=== PATIENT | male | born 1990 | race Caucasian/White ===

== ENCOUNTER 2016-08-13 13:25 | Emergency (ER) | payer OTHER ==
[~2016-08-13] VITALS: Ht 162.6 cm; Wt 86.2 kg
[2016-08-13] MEDS ORDERED: ONDANSETRON 4MG/2ML VIAL (J2405) IV ONE (14:00)
[2016-08-13] MEDS ORDERED: NS 1,000 ML IV ONE (14:00)
[2016-08-13] MEDS ORDERED: FAMOTIDINE IV BAG 20 MG in APPROPRIATE DILUENT 1 EA IV ONE (14:00)
[2016-08-13 14:26] LABS: BASO % 0.3 % (0.0-1.0); EOS # 0.2 K/mm3 (0.0-0.50); EOS % 1.8 % (0.0-3.0); LARGE UNSTAINED CELL # 0.1 K/mm3 (0.0-0.4); LARGE UNSTAINED CELL % 1.2 % (0.0-4.0); LYMPH # 1.8 K/mm3 (1.5-6.5); LYMPH % 18.4 % (24.0-44.0); MEAN CORPUSCULAR HEMOGLOBIN 31.3 pg (27.0-33.0); MEAN CORPUSCULAR HGB CONC 34.4 g/dl (32.0-36.5); MEAN CORPUSCULAR VOLUME 90.8 fl (80.0-96.0); MONO # 0.7 K/mm3 (0.0-0.8); MONO % 7.1 % (0.0-5.0); NEUTROPHILS # 6.6 K/mm3 (1.8-7.7); NEUTROPHILS % 71.1 % (36.0-66.0); PLATELET COUNT, AUTOMATED 255 k/mm3 (150-450); RED CELL DISTRIBUTION WIDTH 12.1 % (11.5-14.5); WHITE BLOOD COUNT 9.2 K/mm3 (4.0-10.0)
[2016-08-13 14:41] LABS: ALBUMIN 4.1 GM/DL (3.2-5.2); ALBUMIN/GLOBULIN RATIO 1.14 (1.00-1.93); ALKALINE PHOSPHATASE 155 U/L (45-117); ALT/SGPT 51 U/L (12-78); ANION GAP 6 MEQ/L (8-16); AST/SGOT 17 U/L (15-37); BILIRUBIN,DIRECT 0.1 MG/DL (0.0-0.2); BILIRUBIN,TOTAL 0.6 MG/DL (0.2-1.0); BLOOD UREA NITROGEN 13 MG/DL (7-18); CALCIUM LEVEL 9.1 MG/DL (8.5-10.1); CARBON DIOXIDE LEVEL 31 MEQ/L (21-32); CHLORIDE LEVEL 104 MEQ/L (98-107); CREATININE FOR GFR 0.94 MG/DL (0.70-1.30); GLOMERULAR FILTRATION RATE > 60.0 (>60); GLUCOSE, FASTING 94 MG/DL (70-105); POTASSIUM SERUM 3.2 MEQ/L (3.5-5.1); SODIUM LEVEL 141 MEQ/L (136-145); TOTAL PROTEIN 7.7 GM/DL (6.4-8.2)
--- NOTE | 2016-08-13 14:47 | REP ---
Clinical: Epigastric and abdominal pain. Technique: Upright view of the chest with supine and upright views of the abdomen and pelvis. Findings: Frontal upright view of the chest demonstrates no acute cardiopulmonary process or free air below the diaphragm to suspect pneumoperitoneum. Supine and upright views of the abdomen and pelvis demonstrate nonspecific bowel gas pattern without obstruction or perforation. No organomegaly. No abnormal calcifications. Skeletal structures normal for age. Impression: Nonspecific bowel gas pattern. Signed by Zhen Fitch MD 08/13/2016 02:39 P
[2016-08-13] MEDS ORDERED: HYDR-3713 PO (15:08)
[2016-08-13] MEDS ORDERED: ZOFR4TAB3 PO (15:08)
[2016-08-13 15:33] VITALS: BP 138/74
== END 2016-08-13 15:39 | disposition home or self-care (01) ==
LOC: M ED 14:40
DX: K85.90 Acute pancreatitis without necrosis or infection, unspecified (principal); F17.210 Nicotine dependence, cigarettes, uncomplicated

== ENCOUNTER 2017-06-19 00:19 | Emergency (ER) | payer OTHER ==
[2017-06-19] MEDS: LIDOCAINE 2% MDV 20 ML VIAL SC (01:31)
[2017-06-19] MEDS: ceFAZolin 1GM INJ (J0690 PER 500MG) IM (02:41)
== END 2017-06-19 02:46 | disposition home or self-care (01) ==
LOC: M ED 00:19
DX: S61.411A Laceration without foreign body of right hand, initial encounter (principal); W22.09XA Striking against other stationary object, initial encounter; Y92.009 Unspecified place in unspecified non-institutional (private) residence as the place of occurrence of the external cause; F17.200 Nicotine dependence, unspecified, uncomplicated
CPT/HCPCS: J0690

== ENCOUNTER → 2021-02-13 | Outpatient (REF) | payer OTHER ==
[~2021-02-13] MED LIST: HYDR-3713 PO; HYDR-3715 PO; KEFL500C17 PO; ZOFR4TAB14 PO
== END ==
LOC: M LAB REF 19:27
PROVIDERS: ATTEND Physician Assistant
DX: J20.9 Acute bronchitis, unspecified (principal)

== ENCOUNTER 2021-02-15 12:26 | Emergency (ER) | payer OTHER ==
[~2021-02-15] VITALS: Ht 162.6 cm; Wt 105.6 kg
[2021-02-15 12:27] VITALS: BP 162/83
--- OUTSIDE RECORDS SUMMARY | 2021-02-15 12:32 | CCD | Continuity of Care Document ---
Author Darrick Pagan Organization Unknown Address [address] [place] [address] [place] [address] Phone [phone] Care Team Providers Care Windows Software Engineer Name Role Phone [facility] AUTM [phone] Problems Description No Information Available Social History Type Date Description Comments Sex Unknown ETOH Use Drinks Alcoholic Beverages Rarel y Tobacco Use Start: Unknown Patient is a current smoker, smo kes every day 1 pack q two weeks Tobacco Use Start: Unknown The Patient Has Never Vaped Allergies and adverse reactions Description No Known Drug Allergies Medications Active Medications SIG Qnty Indications Ordering Provide r Date Proair HFA 108(90Base) mcg/Act Aer osol 2 puffs by mouth inhaled every 4-6 hours as needed 8.500gm J20.9 Brad Esparza JR., M.D. 02/13/2021 Prednisone 10mg Tablets 1 tab PO tid for 4 days 12tabs J20.9 Brad Esparza JR., M.D. Multivitamin Unknown Immunizations Description No Information Available Vital Signs Date Vital Result Comment 02/13/2021 3:40pm BP Systolic 145 mmHg BP Diastolic 81 mmHg Heart Rate 86 /min Respiratory Rate 16 /min O2 % BldC Oximetry 99 % Body Temperature 98.3 F Weight 190.00 lb Height 64 inches 5'4" BMI (Body Mass Index) 32.6 kg/m2 Pain Level 7 Results Description No Information Available Procedures Date Code Description Status 02/13/2021 62208 Office/Outpatient New Low [facility] 30 -44 Minutes Completed Medical Devices Description No Information Available Encounters Type Date Location Provider Dx Diagnosis Office Visit 02/13/2021 1:00p Main Office ERNESTINE Corado J20.9 Acute bronchitis, unspecified Z20.828 Contact w and exposure to ot h viral communicable diseases Assessments Date Code Description Provider 02/13/2021 J20.9 Acute bronchitis, unspecified Re ERNESTINE Harmon 02/13/2021 Z20.828 Contact with and (garcia spected) exposure to other viral communicable diseases ERNESTINE Corado Plan of Treatment No Information Available Functional Status Description No Information Available Mental Status Description No Information Available Referrals Description No Information Available
--- OUTSIDE RECORDS SUMMARY | 2021-02-15 12:32 | CCD ---
Author Author [facility] Address Unknown Phone Unavailable Care Team Providers Care Bullet Maker Name Role Phone RING, K ESME PA Unavailable Unavailable RING, K ESME PA Unavailable Unavailable RING, K ESME PA Unavailable Unavailable RING, K ESME PA Unavailable Unavailable RING, K ESME PA Unavailable Unavailable RING, K ESME PA Unavailable Unavailable RING, K ESME PA Unavailable Unavailable RING, K ESME PA Unavailable Unavailable RING, K ESME PA Unavailable Unavailable RING, K ESME PA Unavailable Unavailable RING, K ESME PA Unavailable Unavailable RING, K ESME PA Unavailable Unavailable RING, K ESME PA Unavailable Unavailable RING, K ESME PA Unavailable Unavailable RING, K ESME PA Unavailable Unavailable RING, K ESME PA Unavailable Unavailable RING, K ESME PA Unavailable Unavailable RING, K ESME PA Unavailable Unavailable RING, K ESME PA Unavailable Unavailable RING, K ESME PA Unavailable Unavailable RING, K ESME PA Unavailable Unavailable RING, K ESME PA Unavailable Unavailable Kendall, Theresa Unavailable Kendall, Theresa Unavailable BUMBANAC, A STAR AN/SQQ 89(V)15 SONAR SYSTEM JOURNEYMAN Unavailable Unavailable BUMBANAC, A STAR AN/SQQ 89(V)15 SONAR SYSTEM JOURNEYMAN Unavailable Unavailable BUMBANAC, A STAR AN/SQQ 89(V)15 SONAR SYSTEM JOURNEYMAN Unavailable Unavailable BUMBANAC, A STAR AN/SQQ 89(V)15 SONAR SYSTEM JOURNEYMAN Unavailable Unavailable BUMBANAC, A STAR AN/SQQ 89(V)15 SONAR SYSTEM JOURNEYMAN Unavailable Unavailable BUMBANAC, A STAR AN/SQQ 89(V)15 SONAR SYSTEM JOURNEYMAN Unavailable Unavailable BUMBANAC, A STAR AN/SQQ 89(V)15 SONAR SYSTEM JOURNEYMAN Unavailable Unavailable BUMBANAC, A STAR AN/SQQ 89(V)15 SONAR SYSTEM JOURNEYMAN Unavailable Unavailable BUMBANAC, A STAR AN/SQQ 89(V)15 SONAR SYSTEM JOURNEYMAN Unavailable Unavailable BUMBANAC, A STAR AN/SQQ 89(V)15 SONAR SYSTEM JOURNEYMAN Unavailable Unavailable BUMBANAC, A STAR AN/SQQ 89(V)15 SONAR SYSTEM JOURNEYMAN Unavailable Unavailable BUMBANAC, A STAR AN/SQQ 89(V)15 SONAR SYSTEM JOURNEYMAN Unavailable Unavailable BUMBANAC, A STAR AN/SQQ 89(V)15 SONAR SYSTEM JOURNEYMAN Unavailable Unavailable BUMBANAC, A STAR AN/SQQ 89(V)15 SONAR SYSTEM JOURNEYMAN Unavailable Unavailable BUMBANAC, A STAR AN/SQQ 89(V)15 SONAR SYSTEM JOURNEYMAN Unavailable Unavailable BUMBANAC, A STAR AN/SQQ 89(V)15 SONAR SYSTEM JOURNEYMAN Unavailable Unavailable BUMBANAC, A STAR AN/SQQ 89(V)15 SONAR SYSTEM JOURNEYMAN Unavailable Unavailable BUMBANAC, A STAR AN/SQQ 89(V)15 SONAR SYSTEM JOURNEYMAN Unavailable Unavailable BUMBANAC, A STAR AN/SQQ 89(V)15 SONAR SYSTEM JOURNEYMAN Unavailable Unavailable BUMBANAC, A STAR AN/SQQ 89(V)15 SONAR SYSTEM JOURNEYMAN Unavailable Unavailable BUMBANAC, A STAR AN/SQQ 89(V)15 SONAR SYSTEM JOURNEYMAN Unavailable Unavailable BUMBANAC, A STAR AN/SQQ 89(V)15 SONAR SYSTEM JOURNEYMAN Unavailable Unavailable BUMBANAC, A STAR AN/SQQ 89(V)15 SONAR SYSTEM JOURNEYMAN Unavailable Unavailable BUMBANAC, A STAR AN/SQQ 89(V)15 SONAR SYSTEM JOURNEYMAN Unavailable Unavailable BUMBANAC, A STAR AN/SQQ 89(V)15 SONAR SYSTEM JOURNEYMAN Unavailable Unavailable BUMBANAC, A STAR AN/SQQ 89(V)15 SONAR SYSTEM JOURNEYMAN Unavailable Unavailable BUMBANAC, A STAR AN/SQQ 89(V)15 SONAR SYSTEM JOURNEYMAN Unavailable Unavailable BUMBANAC, A STAR AN/SQQ 89(V)15 SONAR SYSTEM JOURNEYMAN Unavailable Unavailable BUMBANAC, A STAR AN/SQQ 89(V)15 SONAR SYSTEM JOURNEYMAN Unavailable Unavailable BUMBANAC, A STAR AN/SQQ 89(V)15 SONAR SYSTEM JOURNEYMAN Unavailable Unavailable BUMBANAC, A STAR AN/SQQ 89(V)15 SONAR SYSTEM JOURNEYMAN Unavailable Unavailable NOT, SPECIFIED Unavailable Unavailable Re-disclosure Warning The records that you are about to access may contain information from federally-assisted alcohol or drug abuse programs. If such information is present, then the following federally mandated warning applies: This information has been disclosed to you from records protected by federal confidentiality rules (42 CFR part 2). The federal rules prohibit you from making any further disclosure of this information unless further disclosure is expressly permitted by the written consent of the person to whom it pertains or as otherwise permitted by 42 CFR part 2. A general authorization for the release of medical or other information is NOT sufficient for this purpose. The Federal rules restrict any use of the information to criminally investigate or prosecute any alcohol or drug abuse patient.The records that you are about to access may contain highly sensitive health information, the redisclosure of which is protected by Article 27-F of the [facility] Public Health law. If you continue you may have access to information: Regarding HIV / AIDS; Provided by facilities licensed or operated by the [facility] Office of Mental Health; or Provided by the [facility] Office for People With Developmental Disabilities. If such information is present, then the following [facility] mandated warning applies: This information has been disclosed to you from confidential records which are protected by state law. State law prohibits you from making any further disclosure of this information without the specific written consent of the person to whom it pertains, or as otherwise permitted by law. Any unauthorized further disclosure in violation of state law may result in a fine or senior living sentence or both. A general authorization for the release of medical or other information is NOT sufficient authorization for further disc losure. Allergies and Adverse Reactions Type Description Substance Reaction Status Data Source(s ) No Known Drug Allergies No Known Drug Allergies [facility] Encounters Encounter Providers Location Date Indications Data Source(s ) Outpatient Attender: ESME Garcia [facility] 02/13/2021 12:00:00 PM EST [facility] ([facility] Extended Individual Psychotherapy - 45 min Attender: [facility] 01/28/2021 10:00:00 AM EST - 01/28/2021 10:00:00 AM EST [facility] ([facility]) Attender: Theresa Kendall 01/28/2021 12:00:[address] [facility] ([facility]) Outpatient Attender: KIRIT FONTANA NPConsultant: SPECIFIED NOT 07/13/2020 05:05:00 PM EDT - 07/13/2020 05:05:00 PM EDT [facility] Medications Medication Brand Name Start Date Product Form Dose Route Admi nistrative Instructions Pharmacy Instructions Status Indications Reaction Description Data Source(s) Prednisone 10 MG Oral Tablet Prednisone 02/13/2021 12:00:00 AM EST ORAL active [facility] ([facility]) 200 ACTUAT Albuterol 0.09 MG/ACTUAT Metered Dose Inhaler [Pr oAir] Proair HFA 02/13/2021 12:00:00 AM EST ORAL active [facility] ([facility]) 300 mg 04/16/2020 12:00:00 AM EST capsule 20 TAKE ONE CAPSULE BY MOUTH EVERY 12 HOURS FOR 10 DAYS TAKE ONE CAPSULE BY MOUTH EVERY 12 HOURS FOR 10 DAYS S OLD: 04/16/2020 [facility] tizanidine 4 MG Oral Tablet TIZANIDINE HCL 02/27/2020 12:00:00 AM EST tablet 60 TAKE ONE TABLET BY MOUTH THREE TIMES A DAY NEEDED T DANIEL ONE TABLET BY MOUTH THREE TIMES A DAY NEEDED SOLD: 02/27/2020 [facility] 20 mg 02/27/2020 12:00:00 AM EST tablet 14 TAKE ONE TABLET BY MOUTH TWICE A DAY TAKE ONE TABLET BY MOUTH TWICE A DAY SOLD: 02/27/2020 [facility] 500 mg 02/13/2020 12:00:00 AM EST tablet 80 TAKE TWO TABLETS BY MOUTH FOUR TIMES A DAY NEEDED FOR PAIN FOR 10 DAYS TAKE TWO TABLETS BY MOUTH FOUR TIMES A DAY NEEDED FOR PAIN FOR 10 DAYS SOLD: 02/13/2020 [facility] 500 mg 02/13/2020 12:00:00 AM EST tablet 20 TAKE ONE TABLET BY MOUTH EVERY 12 HOURS FOR 10 DAYS TAKE ONE TABLET BY MOUTH EVERY 12 HOURS FOR 10 DAYS SO LD: 02/13/2020 [facility] Insurance Providers Payer name Policy type / Coverage type Policy ID Covered constitution party ID Covered constitution party's relationship to dee Policy Dee Plan Information [facility] COMMUNITY PLAN [facility] [id number] SP [id number] [facility] [id number] 18 [id number] [facility] Care [facility] Community Plan P [id number] S [id number] Medicaid S [id number] S [id number] Managed Care - [facility] Community Plan P UNAVAILABLE S UNAVAILABLE [facility]) O [id number] S [id number] [facility] COMMUNITY PLAN [facility] [id number] SP [id number] [facility]) O [id number] S [id number] [facility] AMERICHOICE XIX O [id number] UNHC XIX HMO-PHY [id number] 18 [id number] [facility] COMM[facility]ITY [id number] SP [id number] [employer] [id number] SP [place] [id number] SELF PAY UNAVAILABLE SP UNAVAILA BLE OTHER WORKERS COMPENSATION [id number] SP [id number] P UNAVAILABLE UNAVAILA BLE Problems, Conditions, and Diagnoses Code Display Name Description Problem Type Effective Dates Data Source(s) Q12884 CONTACT WITH AND SUSPECTED EXPOSURE TO C OVID-19 CONTACT WITH AND SUSPECTED EXPOSURE TO COVID-19 Diagnosis 07/13/2020 05:05:[address] [facility] F43.23 Adjustment disorder with mixed anxiety a nd depressed mood Adjustment Disorder, With mixed anxiety and depressed mood Condition 2020 12:00:00 AM EST [facility] ([facility]) Surgeries/Procedures Procedure Description Date Indications Data Source(s) OFFICE OUTPATIENT NEW 30 MINUTES 02/13/2021 12:00:00 A M EST [facility] ([facility]) Extended Individual Psychotherapy - 45 min 01/28/2021 12:00:00 AM EST - 01/28/2021 12:00:00 AM EST [facility] ([facility]) Extended Individual Psychotherapy - 45 min 12:00:00 AM EST [facility] ([facility]) Results ID Date Data Source [id number] 02/13/2021 04:30:00 PM EST [facility] ([facility]) Name Value Range Interpretation Code Description Data Ambre rce(s) Supporting Document(s) Respiratory Panel Laboratory test result [facility] ([facility]) patient notified ID Date Data Source [id number] 07/13/2020 05:28:00 PM EDT [facility] Name Value Range Interpretation Code Description Data Amber rce(s) Supporting Document(s) SARS coronavirus 2 RNA Not Detected [facility] This lab was ordered by [facility] jeffrey and reported by [facility]. ID Date Data Source [id number] 07/16/2020 03:20:00 PM EDT [facility] Name Value Range Interpretation Code Description Data Amber rce(s) Supporting Document(s) SARS-CoV-2, MINI Not Detected Not Detected [facility] This nucleic acid amplification test was developed and its performancecharacteristics determined by [employer]. Nucleic acidamplification tests include RT-PCR and TMA. This test has not beenFDA cleared or approved. This test has been authorized by FDA underan Emergency Use Authorization (EUA). This test is only authorizedfor the duration of time the declaration that circumstances existjustifying the authorization of the emergency use of in vitrodiagnostic tests for detection of SARS-CoV-2 virus and/or diagnosisof COVID-19 infection under section 564(b)(1) of the Act, 21 U.S.C.360bbb-3(b) (1), unless the authorization is terminated or revokedsooner.When diagnostic testing is negative, the possibility of a falsenegative result should be considered in the context of a patient'srecent exposures and the presence of clinical signs and symptomsconsistent with COVID- 19. An individual without symptoms of COVID-19and who is not shedding SARS-CoV-2 virus would expect to have anegative (not detected) result in this assay. ID Date Data Source [id number] 07/13/2020 05:28:00 PM EDT [facility] ([facility]) Name Value Range Interpretation Code Description Data Amber rce(s) Supporting Document(s) Covid-[address] [facility]) Procedure Social History Code Duration Value Status Description Data Source(s ) Smoking 01/28/2021 12:00:00 AM EST Unknown if ever smoked comp leted Unknown if ever smoked [facility] Vital Signs ID Date Data Source UNK Name Value Range Interpretation Code Description Data Source(s) Oxygen saturation in Arterial blood by Pulse oximetry 99 % 99 % [facility] ([facility]) Body temperature 98.3 [degF] 98.3 [degF] [facility] ([facility]) Body weight 190.00 [lb_av] 190.00 [lb_av] [facility] ([facility]) Body height 64 [in_i] 64 [in_i] [facility] ([facility]) 5'4" Body mass index (BMI) [Ratio] 32.6 kg/m2 32.6 k g/m2 [facility] ([facility]) Systolic blood pressure 145 mm[Hg] 145 mm[Hg] [facility]) Diastolic blood pressure 81 mm[Hg] 81 mm[Hg] [facility] ([facility], [facility]) Heart rate 86 /min 86 /min [facility] ([facility], [facility]) Respiratory rate 16 /min 16 /min [facility] ( [facility], [facility]) Heart rate 94 /min 94 /min [facility] ([facility]) Body temperature 98.3 [degF] 98.3 [degF] [facility] ([facility]) Oxygen saturation in Arterial blood by Pulse oximetry 97 % 97 % [facility] ([facility])
--- OUTSIDE RECORDS SUMMARY | 2021-02-15 12:32 | CCD | Continuity of Care Document ---
Author Author Darrick JOSEPH Organization Unknown Address [address] [place] [address] [place] [address] Phone [phone] Care Team Providers Care Body Piercer Name Role Phone [facility] AUTM [phone] Problems Description No Information Available Social [...] SIG Qnty Indications Ordering Provide r Date Multivitamin Unknown Immunizations Description No Information Available [...] Available Procedures Date Code Description Status 02/13/2021 66742 Office/Outpatient New Low [facility] 30 -44 Minutes Completed Medical Devices [...]
--- OUTSIDE RECORDS SUMMARY | 2021-02-15 12:32 | CCD ---
Author Author KendallDarrick Theresa Organization Unknown Address [address] [address] Phone Care Team Providers Care Roller Billet Mill Name Role Phone Theresa Kendall PCP Chief Complaint and Reason for Visit Chief Complaint Allergies, Adverse Reactions, Alerts No Data in Section Problem List Concept Problem Description Status Start Date Created Date Resolv ed Date Snomed Code F43.23 Adjustment Disorder, With mixed anxiety and depressed mood Active 01/28/2021 Medications No Data in Section Social History Social History Element Description Concept Effective Date Smoking Status Unknown if ever smoked [id number] Immunizations No Data in Section Vital Signs No Data in Section Procedures Date Concept Id Description Targeted Site Concept Targeted Site Concept Type 01/28/2021 52065 Extended Individual Psychotherapy - 45 min CPT Patient has no history of implantable de vices Encounters Encounter Start Date End Date Encounter Type Description Diagnosis Di agnosis Desc Location Author First Name Author Last Name Npid Taxonomy Cod e Taxonomy Desc Phone Number Location Addr1 Location Addr2 Location [place] Location [facility] Location [facility] [id number] 01/28/2021 01/28/2021 87737 Extended Individual Psych otherapy - 45 min F43.23 Adjustment disorder with mixed anxiety and depressed m ood [facility] Faiza Cardenas [phone] [id number] Social Wo rker [phone] [address] [phone] Plan of Treatment No Data in Section Lab Results No Data in Section Instructions No Data in Section Insurance Providers Insurance Id Policy Effective Date Policy Thru Date Company N yolanda [id number] 2021 [employer] Managed MBryson reyes
--- OUTSIDE RECORDS SUMMARY | 2021-02-15 12:52 | CCD ---
Author Author [facility] Address Unknown Phone Unavailable Care Team Providers Care Business Analyst Consultant Name Role Phone RING, K ESME PA [...] Unavailable Kendall, Theresa Unavailable BUMBANAC, A STAR LONG TERM CARE PHARMACIST Unavailable Unavailable BUMBANAC, A STAR LONG TERM CARE PHARMACIST Unavailable Unavailable BUMBANAC, A STAR LONG TERM CARE PHARMACIST Unavailable Unavailable BUMBANAC, A STAR LONG TERM CARE PHARMACIST Unavailable Unavailable BUMBANAC, A STAR LONG TERM CARE PHARMACIST Unavailable Unavailable BUMBANAC, A STAR LONG TERM CARE PHARMACIST Unavailable Unavailable BUMBANAC, A STAR LONG TERM CARE PHARMACIST Unavailable Unavailable BUMBANAC, A STAR LONG TERM CARE PHARMACIST Unavailable Unavailable BUMBANAC, A STAR LONG TERM CARE PHARMACIST Unavailable Unavailable BUMBANAC, A STAR LONG TERM CARE PHARMACIST Unavailable Unavailable BUMBANAC, A STAR LONG TERM CARE PHARMACIST Unavailable Unavailable BUMBANAC, A STAR LONG TERM CARE PHARMACIST Unavailable Unavailable BUMBANAC, A STAR LONG TERM CARE PHARMACIST Unavailable Unavailable BUMBANAC, A STAR LONG TERM CARE PHARMACIST Unavailable Unavailable BUMBANAC, A STAR LONG TERM CARE PHARMACIST Unavailable Unavailable BUMBANAC, A STAR LONG TERM CARE PHARMACIST Unavailable Unavailable BUMBANAC, A STAR LONG TERM CARE PHARMACIST Unavailable Unavailable BUMBANAC, A STAR LONG TERM CARE PHARMACIST Unavailable Unavailable BUMBANAC, A STAR LONG TERM CARE PHARMACIST Unavailable Unavailable BUMBANAC, A STAR LONG TERM CARE PHARMACIST Unavailable Unavailable BUMBANAC, A STAR LONG TERM CARE PHARMACIST Unavailable Unavailable BUMBANAC, A STAR LONG TERM CARE PHARMACIST Unavailable Unavailable BUMBANAC, A STAR LONG TERM CARE PHARMACIST Unavailable Unavailable BUMBANAC, A STAR LONG TERM CARE PHARMACIST Unavailable Unavailable BUMBANAC, A STAR LONG TERM CARE PHARMACIST Unavailable Unavailable BUMBANAC, A STAR LONG TERM CARE PHARMACIST Unavailable Unavailable BUMBANAC, A STAR LONG TERM CARE PHARMACIST Unavailable Unavailable BUMBANAC, A STAR LONG TERM CARE PHARMACIST Unavailable Unavailable BUMBANAC, A STAR LONG TERM CARE PHARMACIST Unavailable Unavailable BUMBANAC, A STAR LONG TERM CARE PHARMACIST Unavailable Unavailable BUMBANAC, A STAR LONG TERM CARE PHARMACIST Unavailable Unavailable NOT, SPECIFIED Unavailable Unavailable Re-disclosure [...] is protected by Article 27-F of the [facility] Public Health law. If you continue you may have access to information: Regarding HIV / AIDS; Provided by facilities licensed or operated by the [facility] Office of Mental Health; or Provided by the [facility] Office for People With Developmental Disabilities. If such information is present, then the following [facility] mandated warning applies: This information has [...] law may result in a fine or long-term sentence or both. A general authorization for the release of medical or other information is NOT sufficient authorization for further disc losure. Allergies and Adverse Reactions Type Description Substance Reaction Status Data Source(s ) No Known Drug Allergies No Known Drug Allergies [facility] Encounters Encounter Providers Location Date Indications Data Source(s ) Outpatient Attender: ESME [facility] 02/13/2021 12:00:00 PM EST [facility] ([facility]) Extended Individual Psychotherapy - 45 min Attender: Jesus Valentine [facility] 01/28/2021 10:00:00 AM EST - 01/28/2021 10:00:00 AM EST [facility] ([facility]) Attender: Theresa Kendall 01/28/2021 12:00:[address] [facility] ([facility]) Outpatient Attender: KIRIT FONTANA NPConsultant: SPECIFIED NOT 07/13/2020 05:05:00 PM EDT - 07/13/2020 05:05:00 PM EDT [facility] Medications Medication Brand Name Start Date Product Form Dose Route Admi nistrative Instructions Pharmacy Instructions Status Indications Reaction Description Data Source(s) Prednisone 10 MG Oral Tablet Prednisone 02/13/2021 12:00:00 AM EST ORAL active [facility] ([facility]) 200 ACTUAT Albuterol 0.09 MG/ACTUAT Metered Dose Inhaler [Pr oAir] Proair HFA 02/13/2021 12:00:00 AM EST ORAL active [facility] ([facility]) 300 mg 04/16/2020 12:00:00 AM EST capsule [...] relationship to dee Policy Dee Plan Information [facility] COMMUNITY PLAN [facility] [id number] SP [id number] [facility] [id number] 18 [id number] [facility] Care [facility] Community Plan P [id number] S [id number] Medicaid S [id number] S [id number] Managed Care - [facility] Community Plan P UNAVAILABLE S UNAVAILABLE [facility]) O [id number] S [id number] [facility] COMMUNITY PLAN [facility] [id number] SP [id number] [facility]) O [id number] S [id number] [facility] AMERICHOICE XIX O [id number] 18 [id number] UNHC XIX HMO-PHY [id number] 18 [id number] [facility] COMMUNITY [facility] 000 SP 000 [employer] [id number] SP [place] [id number] SELF PAY UNAVAILABLE SP UNAVAILA BLE OTHER WORKERS COMPENSATION [id number] SP [id number] P UNAVAILABLE UNAVAILA BLE Problems, Conditions, and Diagnoses Code Display Name Description Problem Type Effective Dates Data Source(s) [id number] CONTACT WITH AND SUSPECTED EXPOSURE TO C OVID-19 CONTACT WITH AND SUSPECTED EXPOSURE TO COVID-19 Diagnosis 07/13/2020 05:05:00 PM EDT [facility] F43.23 Adjustment disorder with mixed anxiety a nd depressed mood Adjustment Disorder, With mixed anxiety and depressed mood Condition 2020 12:00:00 AM EST [facility] ([facility]) Surgeries/Procedures Procedure Description Date Indications Data Source(s) OFFICE OUTPATIENT NEW 30 MINUTES 02/13/2021 12:00:00 A M EST [facility] ([facility]) Extended Individual Psychotherapy - 45 min 01/28/2021 12:00:00 AM EST - 01/28/2021 12:00:00 AM EST [facility] ([facility]) Extended Individual Psychotherapy - 45 min 12:00:00 AM EST [facility] ([facility]) Results ID Date Data Source [id number] 02/13/2021 04:30:00 PM EST [facility] ([facility]) Name Value Range Interpretation Code Description Data Amber rce(s) Supporting Document(s) Respiratory Panel Laboratory test result [facility] ([facility]) patient notified ID Date Data Source [id number] 07/13/2020 05:28:00 PM EDT [facility] Name Value Range Interpretation Code Description Data Amber rce(s) Supporting Document(s) SARS coronavirus 2 RNA Not Detected [facility] This lab was ordered by [facility] jeffrey and reported by [facility]. ID Date Data Source [id number] 07/16/2020 03:20:00 PM EDT [facility] Name Value Range Interpretation Code Description Data Amber rce(s) Supporting Document(s) SARS-CoV-2, MINI Not Detected Not Detected [facility] This nucleic acid amplification test was developed and its performancecharacteristics determined by [employer]. Nucleic acidamplification tests include RT-PCR and TMA. [...] in this assay. ID Date Data Source [id number] 07/13/2020 05:28:00 PM EDT [facility] ([facility]) Name Value Range Interpretation Code Description Data Amber rce(s) Supporting Document(s) Covid-19 Laboratory test result [facility]) Procedure Social History Code Duration Value Status Description Data Source(s ) Smoking 01/28/2021 12:00:00 AM EST Unknown if ever smoked comp leted Unknown if ever smoked [facility] Vital Signs ID Date Data Source UNK Name Value Range Interpretation Code Description Data Source(s) Oxygen saturation in Arterial blood by Pulse oximetry 99 % 99 % [facility] ([facility]) Body temperature 98.3 [degF] 98.3 [degF] [facility] ([facility]) Body weight 190.00 [lb_av] 190.00 [lb_av] [facility] T ([facility]) Body height 64 [in_i] 64 [in_i] [facility] ([facility]) 5'4" Body mass index (BMI) [Ratio] 32.6 kg/m2 32.6 k g/m2 [facility]) Systolic blood pressure 145 mm[Hg] 145 mm[Hg] [facility]) Diastolic blood pressure 81 mm[Hg] 81 mm[Hg] [facility]) Heart rate 86 /min 86 /min [facility]) Respiratory rate 16 /min 16 /min [facility] ( [facility]) Heart rate 94 /min 94 /min [facility] ([facility]) Body temperature 98.3 [degF] 98.3 [degF] [facility] ([facility]) Oxygen saturation in Arterial blood by Pulse oximetry 97 % 97 % [facility] ([facility])
== END 2021-02-15 12:46 | disposition left against medical advice (07) ==
LOC: M ED 12:26
DX: Z53.21 Procedure and treatment not carried out due to patient leaving prior to being seen by health care provider (principal)

== ENCOUNTER 2021-11-04 14:35 | Emergency (ER) | payer OTHER ==
[~2021-11-04] VITALS: Ht 160 cm; Wt 112.4 kg
[2021-11-04 14:36] VITALS: BP 140/70
== END 2021-11-04 14:56 | disposition left against medical advice (07) ==
LOC: M ED 14:35
DX: Z53.29 Procedure and treatment not carried out because of patient's decision for other reasons (principal)

== ENCOUNTER → 2021-11-05 | Outpatient (CLI) | payer OTHER | LOC: M RAD 18:26 | PROVIDERS: ATTEND Physician Assistant Medical | DX: S89.91XA Unspecified injury of right lower leg, initial encounter (principal) ==